=== PATIENT | male | born 1985 | race Caucasian/White ===

== ENCOUNTER → 2017-03-20 07:26 | Outpatient (CLI) | payer BC ==
[2017-03-20 09:53] LABS: MOTILITY - SEMEN 63 % (70-100); VOLUME - SEMEN 2 MLS (2.0-3.0)
[2017-03-20 10:43] LABS: PH SEMEN 9 (7-8)
[2017-03-20 12:35] LABS: SPERMATOZOA COUNT 89.5 MILL/ML (60-150)
[2017-03-20 12:39] LABS: MORPHOLOGY - SEMEN 56 % (30-100)
== END | disposition home or self-care (01) ==
LOC: D.LAB 07:26
PROVIDERS: Family Medicine
DX: E29.1 Testicular hypofunction (principal)

== ENCOUNTER 2021-01-16 20:24 | Emergency (ER) | payer BC ==
[~2021-01-16] VITALS: Ht 175.3 cm; Wt 96.4 kg
[2021-01-16 20:28] VITALS: Ht 175.3 cm; Wt 96.4 kg
[2021-01-16] MEDS ORDERED: PENICILLIN V P500 MG PO (21:05)
[2021-01-16] MEDS ORDERED: IBUPROFEN800 MG PO (21:05)
[2021-01-16 21:22] VITALS: BP 125/66
== END 2021-01-16 21:20 | disposition home or self-care (01) ==
LOC: D.ER 20:24
DX: K04.7 Periapical abscess without sinus (principal); K08.89 Other specified disorders of teeth and supporting structures; Z72.0 Tobacco use